=== PATIENT | female | born 1970 | race Caucasian/White ===

== ENCOUNTER 2018-03-23 19:28 | Emergency (ER) | payer OTHER ==
[2018-03-23 21:31] LABS: ABS Basophils 0 10^3/ul (0-0.2); ABS Eosinophils 0.1 10^3/ul (0-0.6); ABS Lymphocytes 1.9 10^3/ul (1.0-4.8); ABS Monocytes 0.6 10^3/ul (0-0.8); ABS Neutrophils 4.2 10^3/ul (1.5-7.7); ABS Nucleated RBC 0 10^3/ul; Eosinophil % 1.9 % (0-6); Hematocrit 37 % (35-47); Hemoglobin 12.4 g/dl (12.0-16.0); Lymphocyte % 28.2 % (25-47); Mean Corpuscular HGB Conc 34 g/dl (31-36); Mean Corpuscular Hemoglobin 31 pg (27-31); Mean Corpuscular Volume 92 fL (80-97); Mean Platelet Volume 9.3 um3 (7.4-10.4); Nucleated Red Blood Cells % 0.1; Platelet Count 232 10^3/ul (150-450); Red Cell Distribution Width 13 % (10.5-15); White Blood Count 6.9 10^3/ul (3.5-10.8)
--- NOTE | 2018-03-23 21:36 | RAD ---
EXAM: US Duplex Right Lower Extremity Veins CLINICAL HISTORY: 47 years old, female; Pain and signs and symptoms; Swelling of limb; Lower extremity, right; Leg, lower; Additional info: Leg swelling and pain TECHNIQUE: Real-time duplex ultrasound scan of the right lower extremity veins integrating B-mode two-dimensional vascular structure, Doppler spectral analysis, color flow Doppler imaging and compression. COMPARISON: No relevant prior studies available. FINDINGS: Deep veins: Unremarkable. No DVT in the visualized common femoral, femoral, proximal deep femoral or popliteal veins. The veins demonstrate normal color flow, are normally compressible, with normal phasic flow and/or augmentation response. Superficial veins: Unremarkable. No thrombus in the visualized great saphenous vein. Soft tissues: No acute findings. No popliteal cyst. IMPRESSION: Normal right lower extremity duplex venous ultrasound.
[2018-03-23 22:36] VITALS: BP 107/68
--- NOTE | 2018-03-24 02:18 | ED ---
Lower Extremity - HPI Summary HPI Summary: Patient is a 47-year-old female who presents emergency department for bilateral leg swelling 2 days. 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 She states she noticed swelling yesterday after work. She notes pain to the back of her right leg. She denies recent surgery, travels, clotting disordered. She denies CP or SOB. Pt. state she has only ever had peripheral was when she was . Symptoms are mild-moderate in severity. Standing makes symptoms worse. No significant past medical hx. - History of Current Complaint Chief Complaint: EDExtremityLower Stated Complaint: SWELLING IN LEG/FEET Time Seen by Provider: 03/23/18 22:02 Hx Obtained From: Patient Pain Intensity: 0 Pain Scale Used: 0-10 Numeric - Allergies/Home Medications Allergies/Adverse Reactions: Allergies Allergy/AdvReac Type Severity Reaction Status Date / Time latex Allergy Unknown Verified 03/23/18 19:32 Reaction Details Penicillins Allergy Unknown Verified 03/23/18 19:32 Reaction Details sulfamethoxazole Allergy Unknown Verified 03/23/18 19:32 [From Bactrim] Reaction Details trimethoprim [From Bactrim] Allergy Unknown Verified 03/23/18 19:32 Reaction Details Home Medications: Home Medications NK [No Home Medications Reported] 03/23/18 [History Confirmed 03/23/18] PMH/Surg Hx/FS Hx/Imm Hx Previously Healthy: Yes Endocrine/Hematology History: Denies: Hx Diabetes Cardiovascular History: Denies: Hx Hypertension History: Reports: Other Problems/Disorders - Hx UTIs - Surgical History Surgery Procedure, Year, and Place: Appendectomy at age 23 Infectious Disease History: No Infectious Disease History: Denies: Traveled Outside the [place] in Last 30 Days - Social History Occupation: Employed Full-time Lives: With Family Alcohol Use: Occasionally Hx Substance Use: No Substance Use Type: Reports: None Hx Tobacco Use: No Smoking Status (MU): Never Smoked Tobacco Review of Systems Constitutional: Negative Cardiovascular: Negative Negative: Chest Pain Respiratory: Negative Negative: Shortness Of Breath Positive: Other - Swelling to bilateral LEs. Pain to right posterior leg. Skin: Negative Negative: Weakness, Paresthesia, Numbness All Other Systems Reviewed And Are Negative: Yes Physical Exam Triage Information Reviewed: Yes Vital Signs On Initial Exam: Initial Vitals Temp Pulse Resp BP Pulse Ox 98.4 F 99 16 121/61 99 03/23/18 19:33 03/23/18 19:33 03/23/18 19:33 03/23/18 19:33 03/23/18 19:33 Vital Signs Reviewed: Yes Appearance: Positive: Well-Appearing - Pt. lying on bed in NAD. Skin: Positive: Warm, Dry Head/Face: Positive: Normal Head/Face Inspection Eyes: Positive: Normal, EOMI Neck: Positive: Supple Respiratory/Lung Sounds: Positive: Clear to Auscultation, Breath Sounds Present Cardiovascular: Positive: Normal, RRR Musculoskeletal: Positive: Other - Mild pitting edema to bilateral LEs. Pain on palpation to right posterior mid leg. No wounds, rash or signs of infection. Neurological: Positive: Normal, CN Intact II-III Psychiatric: Positive: Affect/Mood Appropriate Diagnostics - Vital Signs Vital Signs Temp Pulse Resp BP Pulse Ox 03/23/18 22:36 97.9 F 59 16 107/68 100 03/23/18 22:31 59 107/68 100 03/23/18 22:12 66 100 03/23/18 22:11 110/69 03/23/18 21:40 98.8 F 63 16 114/87 100 03/23/18 19:33 98.4 F 99 16 121/61 99 - Laboratory Lab Results: Lab Results 03/23/18 03/23/18 03/23/18 Range/Units 21:19 21:19 21:19 WBC 6.9 (3.5-10.8) 10^3/ul RBC 4.00 (4.00-5.40) 10^6/ul Hgb 12.4 (12.0-16.0) g/dl Hct 37 (35-47) % MCV 92 (80-97) fL MCH 31 (27-31) pg MCHC 34 (31-36) g/dl RDW 13 (10.5-15) % Plt Count 232 (150-450) 10^3/ul MPV 9.3 (7.4-10.4) um3 Neut % (Auto) 60.4 (38-83) % Lymph % (Auto) 28.2 (25-47) % [place] % (Auto) 9.0 H (0-7) % Eos % (Auto) 1.9 (0-6) % Baso % (Auto) 0.5 (0-2) % Absolute Neuts (auto) 4.2 (1.5-7.7) 10^3/ul Absolute Lymphs (auto) 1.9 (1.0-4.8) 10^3/ul Absolute Monos (auto) 0.6 (0-0.8) 10^3/ul Absolute Eos (auto) 0.1 (0-0.6) 10^3/ul Absolute Basos (auto) 0 (0-0.2) 10^3/ul Absolute Nucleated RBC 0 10^3/ul Nucleated RBC % 0.1 Sodium 141 (135-145) mmol/L Potassium 4.0 (3.5-5.0) mmol/L Chloride 109 (101-111) mmol/L Carbon Dioxide 25 (22-32) mmol/L Anion Gap 7 (2-11) mmol/L BUN 10 (6-24) mg/dL Creatinine 0.71 (0.51-0.95) mg/dL Est GFR ( Amer) 107.7 (>60) Est GFR (Non-Af Amer) 89.0 (>60) BUN/Creatinine Ratio 14.1 (8-20) Glucose 93 (70-100) mg/dL Calcium 8.8 (8.6-10.3) mg/dL B-Natriuretic Peptide 54 ( - 100) pg/mL TSH 3.16 (0.34-5.60) mcIU/mL Result Diagrams: 03/23/18 21:19 03/23/18 21:19 Lab Statement: Any lab studies that have been ordered have been reviewed, and results considered in the medical decision making process. Lower Extremity Course/Dx - Course Course Of Treatment: Pt. presenting with bilateral peripheral edema and pain to right posterior leg. She is afebrile with stable VS. Denies CP or SOB. Blood work is unremarkable including normal kidney function and normal BNP. Venous duplex of right LE is negative for DVT or acute findings, reading per radiology. Results discussed. Advised pt. to purchase OTC compression stockings , to avoid standing for long periods of time, to elevate legs, and decrease salt intake. Advised pt. to call PCP tomorrow for a close f.u apt. To return to ER if sxs change or worsen. - Diagnoses Differential Diagnosis/HQI/PQRI: Positive: Cellulitis, DVT, Phlebitis, Sprain, Strain Provider Diagnoses: Peripheral edema Discharge - Sign-Out/Discharge Documenting (check all that apply): Patient Departure - Discharge Plan Condition: Good Disposition: HOME Patient Education Materials: Leg Edema (ED), Venous Insufficiency (DC) Referrals: Christina Hoang MD [Primary Care Provider] - Additional Instructions: Call your PCP tomorrow for a follow up appointment Elevate legs and avoid standing for long periods of time Wear compression stocking Return to ER if symptoms change or worsen - Billing Disposition and Condition Condition: GOOD Disposition: Home
== END 2018-03-23 22:38 | disposition home or self-care (01) ==
LOC: ED 19:28
DX: R60.0 Localized edema (principal); Z88.0 Allergy status to penicillin; Z88.2 Allergy status to sulfonamides
CPT/HCPCS: 36415; 80048; 83880; 84443; 85025; 99283